=== PATIENT | female | born 1935 | race Caucasian/White ===

== ENCOUNTER 2022-09-23 07:00 | Inpatient (IN) ==
[2022-09-23 07:57] LABS: ABS Basophils 0.1 10^3/uL (0.0-0.1); ABS Eosinophils 0.1 10^3/uL (0.0-0.5); ABS Lymphocytes 1.8 10^3/uL (1.0-4.8); ABS Monocytes 0.8 10^3/uL (0.0-0.9); ABS Neutrophils 5.3 10^3/uL (1.5-7.6); Eosinophil % 1.8 %; Hematocrit 41.4 % (35-45); Hemoglobin 13.7 g/dL (11.5-14.3); Lymphocyte % 22.2 %; Mean Corpuscular Hemoglobin 28.2 pg (27-33); Mean Corpuscular Volume 85.5 fL (80-97); Mean Platelet Volume 6.9 fL (7.5-11.2); Platelet Count 282 10^3/uL (150-450); Red Blood Count 4.84 10^6/uL (3.63-4.92); Red Cell Distribution Width 14.1 % (12-17); White Blood Count 8.1 10^3/uL (3.8-11.8)
[2022-09-23 08:00] LABS: Urine Appearance Clear; Urine Bilirubin Negative (Negative); Urine Blood Negative (Negative); Urine Color Colorless; Urine Glucose Negative (Negative); Urine Ketones Negative (Negative); Urine Nitrite Negative (Negative); Urine Protein Negative (Negative); Urine Specific Gravity 1.004 (1.002-1.030); Urine Urobilinogen Negative (Negative)
[2022-09-23 08:05] LABS: Activated Partial Thrombo Time 25.9 seconds (26.0-38.0); INR 1.04 (0.88-1.18)
[2022-09-23 08:13] LABS: Albumin 3.6 g/dL (3.2-5.2); Albumin/Globulin Ratio 1.1 (1-3); C Reactive Protein 25.15 mg/L (<8.01); Calcium 9.3 mg/dL (8.6-10.3); Creatinine, Serum 0.6 mg/dL (0.51-0.95); Globulin 3.4 g/dL (2-4); Potassium 3.3 mmol/L (3.5-5.0); eGFR CKD-EPI 87.4 (>60)
[2022-09-23] MEDS ORDERED: Iohexol 350 (CONTRAST) 500 ML MDV IV ONE (09:15)
[2022-09-23] MEDS ORDERED: Ondansetron 4 mg VIAL 2 MG/ML 2 ml VIAL IV PRN (09:19)
[2022-09-23 09:48] LABS: High Sensitivity Troponin 1 Hr 64 pg/mL (<15)
[2022-09-23] MEDS: Enoxaparin 40 MG/0.4 ML SYR SUBCUT SCH (09:56)
[2022-09-23] MEDS ORDERED: Furosemide 20 mg/2 ml IV VIAL IV SLOW PU ONE (11:23)
[2022-09-23] MEDS ORDERED: Potassium Chlor 20 meq TAB.ER PO ONE (11:30)
[2022-09-23] MEDS: NF:Multivitamins/Mins AREDS2 (NF) CAP PO SCH (21:22)
[2022-09-24 05:52] LABS: ABS Basophils 0.1 10^3/uL (0.0-0.1); ABS Eosinophils 0.2 10^3/uL (0.0-0.5); ABS Lymphocytes 1.6 10^3/uL (1.0-4.8); ABS Monocytes 0.7 10^3/uL (0.0-0.9); ABS Neutrophils 3.9 10^3/uL (1.5-7.6); Eosinophil % 3.2 %; Hematocrit 37.7 % (35-45); Hemoglobin 12.6 g/dL (11.5-14.3); Lymphocyte % 25.2 %; Mean Corpuscular Hemoglobin 28.7 pg (27-33); Mean Corpuscular Hgb Conc 33.3 g/dL (31-36); Mean Corpuscular Volume 86.2 fL (80-97); Mean Platelet Volume 6.8 fL (7.5-11.2); Platelet Count 239 10^3/uL (150-450); Red Blood Count 4.37 10^6/uL (3.63-4.92); Red Cell Distribution Width 13.8 % (12-17); White Blood Count 6.5 10^3/uL (3.8-11.8)
[2022-09-24 06:09] LABS: Creatinine, Serum 0.65 mg/dL (0.51-0.95); Potassium 3.7 mmol/L (3.5-5.0); eGFR CKD-EPI 85.7 (>60)
[2022-09-24] MEDS: Fluticasone NASAL SPRAY 50MCG 16 gm SPRAY BTL INTRANASAL SCH (08:17)
[2022-09-24] MEDS: Cholecalciferol (VIT D3) 1,000 unit TAB PO SCH (08:18)
[2022-09-24] MEDS: Enoxaparin 40 MG/0.4 ML SYR SUBCUT SCH (08:22)
[2022-09-24] MEDS: NF:Multivitamins/Mins AREDS2 (NF) CAP PO SCH ×2 (13:39→19:52)
[2022-09-24] MEDS: cefTRIAXone 1 gm/50 mL D5W 1 GM/50 ML BAG IV SCH (17:19)
[2022-09-24] MEDS: Azithromycin 500 mg/250 ml NS 500 MG/250 ML BAG IVPB SCH (18:01)
[2022-09-25] MEDS: Cholecalciferol (VIT D3) 1,000 unit TAB PO SCH (08:24)
[2022-09-25] MEDS: NF:Multivitamins/Mins AREDS2 (NF) CAP PO SCH ×2 (08:24→19:42)
[2022-09-25] MEDS: Fluticasone NASAL SPRAY 50MCG 16 gm SPRAY BTL INTRANASAL SCH (08:31)
[2022-09-25] MEDS: Enoxaparin 40 MG/0.4 ML SYR SUBCUT SCH (08:32)
[2022-09-25] MEDS: cefTRIAXone 1 gm/50 mL D5W 1 GM/50 ML BAG IV SCH (14:41)
[2022-09-25] MEDS: Azithromycin 500 mg/250 ml NS 500 MG/250 ML BAG IVPB SCH (15:43)
[2022-09-25] MEDS: Benzocaine (plain) Lozenge 15 MG PO PRN (21:08)
[2022-09-26] MEDS: NF:Multivitamins/Mins AREDS2 (NF) CAP PO SCH ×2 (08:02→20:26)
[2022-09-26] MEDS: Fluticasone NASAL SPRAY 50MCG 16 gm SPRAY BTL INTRANASAL SCH (08:02)
[2022-09-26] MEDS: Cholecalciferol (VIT D3) 1,000 unit TAB PO SCH (08:03)
[2022-09-26] MEDS: Enoxaparin 40 MG/0.4 ML SYR SUBCUT SCH (08:06)
[2022-09-26 08:21] LABS: Hematocrit 39.2 % (35-45); Hemoglobin 13.2 g/dL (11.5-14.3); Mean Corpuscular Hemoglobin 28.8 pg (27-33); Mean Corpuscular Hgb Conc 33.6 g/dL (31-36); Mean Corpuscular Volume 85.7 fL (80-97); Mean Platelet Volume 6.8 fL (7.5-11.2); Platelet Count 268 10^3/uL (150-450); Red Blood Count 4.57 10^6/uL (3.63-4.92); Red Cell Distribution Width 13.9 % (12-17); White Blood Count 7.8 10^3/uL (3.8-11.8)
[2022-09-26 08:38] LABS: Creatinine, Serum 0.62 mg/dL (0.51-0.95); Potassium 3.6 mmol/L (3.5-5.0); eGFR CKD-EPI 86.7 (>60)
[2022-09-26] MEDS: cefTRIAXone 1 gm/50 mL D5W 1 GM/50 ML BAG IV SCH (15:23)
[2022-09-26] MEDS: Azithromycin 500 mg/250 ml NS 500 MG/250 ML BAG IVPB SCH (16:07)
[2022-09-27] MEDS: NF:Multivitamins/Mins AREDS2 (NF) CAP PO SCH ×2 (08:33→21:24)
[2022-09-27] MEDS: Cholecalciferol (VIT D3) 1,000 unit TAB PO SCH (08:36)
[2022-09-27] MEDS: Enoxaparin 40 MG/0.4 ML SYR SUBCUT SCH (08:36)
[2022-09-27] MEDS: Fluticasone NASAL SPRAY 50MCG 16 gm SPRAY BTL INTRANASAL SCH (08:38)
[2022-09-27] MEDS: cefTRIAXone 1 gm/50 mL D5W 1 GM/50 ML BAG IV SCH (15:04)
[2022-09-28] MEDS: Cholecalciferol (VIT D3) 1,000 unit TAB PO SCH (09:11)
[2022-09-28] MEDS: NF:Multivitamins/Mins AREDS2 (NF) CAP PO SCH ×2 (09:14→21:54)
[2022-09-28] MEDS: Enoxaparin 40 MG/0.4 ML SYR SUBCUT SCH (09:14)
[2022-09-28] MEDS: Fluticasone NASAL SPRAY 50MCG 16 gm SPRAY BTL INTRANASAL SCH (09:14)
[2022-09-28] MEDS: cefTRIAXone 1 gm/50 mL D5W 1 GM/50 ML BAG IV SCH (16:39)
[2022-09-28] MEDS: Benzocaine (plain) Lozenge 15 MG PO PRN (21:55)
[2022-09-29] MEDS: Enoxaparin 40 MG/0.4 ML SYR SUBCUT SCH (09:02)
[2022-09-29] MEDS: Cholecalciferol (VIT D3) 1,000 unit TAB PO SCH (09:03)
[2022-09-29] MEDS: Fluticasone NASAL SPRAY 50MCG 16 gm SPRAY BTL INTRANASAL SCH (09:04)
[2022-09-29] MEDS: NF:Multivitamins/Mins AREDS2 (NF) CAP PO SCH ×2 (10:29→20:59)
[2022-09-29] MEDS: cefTRIAXone 1 gm/50 mL D5W 1 GM/50 ML BAG IV SCH (16:28)
[2022-09-30] MEDS: NF:Multivitamins/Mins AREDS2 (NF) CAP PO SCH (10:19)
[2022-09-30] MEDS: Cholecalciferol (VIT D3) 1,000 unit TAB PO SCH (10:19)
[2022-09-30] MEDS: Enoxaparin 40 MG/0.4 ML SYR SUBCUT SCH (10:23)
[2022-09-30] MEDS: Fluticasone NASAL SPRAY 50MCG 16 gm SPRAY BTL INTRANASAL SCH (10:23)
[2022-09-30 14:01] VITALS: BP 100/62
[2022-09-30] MEDS: cefTRIAXone 1 gm/50 mL D5W 1 GM/50 ML BAG IV SCH (16:45)
== END 2022-09-30 17:45 | disposition home or self-care (01) | DRG 189 ==
LOC: ED 07:00 → EDHOLD 09:19 → SUATTDRO 09:19 → MED 11:05
PROVIDERS: ADMIT Student in an Organized Health Care Education/Training Program; ATTEND Internal Medicine